=== PATIENT | male | born 1970 | race American Indian/Alaskan Native ===

== ENCOUNTER 2017-03-15 21:47 | Emergency (ER) | payer MEDICAID, OTHER ==
[2017-03-15 22:21] VITALS: BP 123/86
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
--- NOTE | 2017-03-16 09:29 | CR ---
Heart size within normal limits. Left lung is clear. Old right rib fracture. No focal consolidation.
== END 2017-03-15 23:45 | disposition home or self-care (01) ==
LOC: JP.ED 21:47
DX: S20.212A Contusion of left front wall of thorax, initial encounter (principal); E10.9 Type 1 diabetes mellitus without complications; F17.210 Nicotine dependence, cigarettes, uncomplicated; Z79.4 Long term (current) use of insulin; W20.8XXA Other cause of strike by thrown, projected or falling object, initial encounter
CPT/HCPCS: 71020; 71020-26; 99283; 99284

== ENCOUNTER 2017-03-17 13:40 | Emergency (ER) | payer MEDICAID, OTHER ==
[2017-03-17 13:57] VITALS: BP 139/80
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
[2017-03-17] MEDS ORDERED: Acetaminophen/HYDROcodone 325-5 MG Tab PO ONE (14:33)
[2017-03-17] MEDS ORDERED: Ibuprofen 600 MG Tab PO ONE (14:34)
== END 2017-03-17 17:07 | disposition home or self-care (01) ==
LOC: JP.ED 13:40
DX: R73.9 Hyperglycemia, unspecified (principal); S20.212A Contusion of left front wall of thorax, initial encounter; E10.9 Type 1 diabetes mellitus without complications; F17.210 Nicotine dependence, cigarettes, uncomplicated; Z79.4 Long term (current) use of insulin; V49.9XXA Car occupant (driver) (passenger) injured in unspecified traffic accident, initial encounter
CPT/HCPCS: 82962; 99284; A9270; 99283

== ENCOUNTER 2017-04-07 23:04 | Emergency (ER) | payer MEDICAID ==
[2017-04-07 23:24] VITALS: BP 117/78
[2017-04-07] MEDS ORDERED: LANTUS SQ STA (23:34)
[2017-04-07] MEDS ORDERED: Insulin Aspart 100 Units/ML 3 ML Pen SUBCUT ONE (23:35)
--- NOTE | 2017-04-07 23:40 | EDM.PDOC ---
ED HPI GENERAL MEDICAL PROBLEM - General Chief Complaint: Diabetic Complaint Stated Complaint: HIGH BLOOD SUGAR Time Seen by Provider: 04/07/17 23:33 Source of Information: Reports: Patient History Limitations: Reports: No limitations - History of Present Illness INITIAL COMMENTS - FREE TEXT/NARRATIVE: History of present illness: [This 38-year-old male presents here requesting an injection of NovoLog and Lantus. [place] going [place] be working in the area and ran out of his insulin. He seems quite intelligent with respect to the use of insulin and what he needs to take. He checked his blood sugar before coming over and it was 450 and is requesting 25 units of NovoLog N. 28 units of Lantus. He is feeling fine and he plans to try to get in the clinic tomorrow to establish a primary care provider who can provide him his needs for his diabetes.] Review of systems: As per history of present illness and below otherwise all systems reviewed and negative. Past medical history: As per history of present illness and as reviewed below otherwise noncontributory. Surgical history: As per history of present illness and as reviewed below otherwise noncontributory. Social history: No reported history of drug or alcohol abuse. Family history: As per history of present illness and as reviewed below otherwise noncontributory. Physical exam: HEENT: Atraumatic, normocephalic, pupils reactive, negative for conjunctival pallor or scleral icterus, mucous membranes moist, throat clear, neck supple, nontender, trachea midline. Lungs: Clear to auscultation, breath sounds equal bilaterally, chest nontender. Heart: S1S2, regular, negative for clicks, rubs, or JVD. Abdomen: Soft, nondistended, nontender. Negative for masses or hepatosplenomegaly. Negative for costovertebral tenderness. Pelvis: Stable nontender. Genitourinary: Deferred. Rectal: Deferred. Extremities: Atraumatic, negative for cords or calf pain. Neurovascular unremarkable. Neuro: Awake, alert, oriented. Cranial nerves II through XII unremarkable. Cerebellum unremarkable. Motor and sensory unremarkable throughout. Exam nonfocal. Diagnostics: [] Therapeutics: [] Impression: [Diabetes mellitus insulin-dependent] Plan: [We will provide him with these injections tonight and then he will followup in the clinic tomorrow] Definitive disposition and diagnosis as appropriate pending reevaluation and review of above. - Related Data Allergies Allergy/AdvReac Type Severity Reaction Status Date / Time No Known Allergies Allergy Verified 04/07/17 23:24 Home Meds: Home Meds Insulin Aspart [Novolog Flexpen] 25 - 35 units SUBCNJ QID 03/15/17 [History] Insulin Glarg,Human.Rec.Analog [Lantus Solostar] 32 units SUBCNJ DAILY 03/15/17 [History] Past Medical History Musculoskeletal History: Reports: Fracture Endocrine/Metabolic History: Reports: Diabetes, type I Social & Family History - Family History Family Medical History: Unobtainable - Tobacco Use Smoking Status *Q: Current Status Unknown Years of Tobacco use: 1 Packs/Tins Daily: 0.5 - Caffeine Use Caffeine Use: Reports: Coffee, Soda - Recreational Drug Use Recreational Drug Use: No ED ROS GENERAL - Review of Systems Review Of Systems: ROS reveals no pertinent complaints other than HPI. ED EXAM GENERAL NO PERIP PULSE - Physical Exam Exam: See Below Course - Vital Signs Last Recorded V/S: Last Vital Signs Temp 36.1 C 04/07/17 23:21 Pulse 90 04/07/17 23:21 Resp 19 04/07/17 23:21 BP 117/78 04/07/17 23:21 Pulse Ox 98 04/07/17 23:21 - Orders/Labs/Meds Meds: Medications Discontinued Medications Generic Name Dose Route Start Last Admin Trade Name Freq PRN Reason Stop Dose Admin Insulin Aspart 25 unit 04/07/17 23:35 Novolog SUBCUT 04/07/17 23:36 ONETIME ONE Non-Formulary Medication 28 units 04/07/17 23:34 Lantus SQ 04/07/17 23:35 NOW STA Departure - Departure Time of Disposition: 23:40 Disposition: Home, Self-Care 01 Condition: good Clinical Impression: Diabetes mellitus, insulin dependent (IDDM), controlled - Discharge Information Forms: ED Department Discharge
[2017-04-07] MEDS ORDERED: Insulin Detemir 100 Units/ML 3 ML Pen SUBCUT ONE (23:45)
== END 2017-04-07 23:55 | disposition home or self-care (01) ==
LOC: JP.ED 23:04
DX: E11.9 Type 2 diabetes mellitus without complications (principal); Z79.4 Long term (current) use of insulin
CPT/HCPCS: 99283; A9270

== ENCOUNTER 2017-09-19 15:31 | Emergency (ER) | payer MEDICAID ==
[2017-09-19] MEDS ORDERED: Tetracaine HCl/PF 0.5% 4 ML Bottle EYERT ONE (15:47)
[2017-09-19 15:53] VITALS: BP 145/88
--- NOTE | 2017-09-19 16:04 | EDM.PDOC ---
ED HPI GENERAL MEDICAL PROBLEM - General Chief Complaint: Eye Problems Stated Complaint: RIGHT EYE, PIECE OF METAL Time Seen by Provider: 09/19/17 15:45 Source of Information: Reports: Patient History Limitations: Reports: No Limitations - History of Present Illness INITIAL COMMENTS - FREE TEXT/NARRATIVE: Chase is a 46 year old diabetic male who presents to the ED today with concerns of a FB in his right eye. Patient working on his car when he felt something enter his eye, he then rubbed his eye causing redness and pain. Patient arrives here c/o right eye pain and redness, denies any visual concerns and DT is up to date. Patient denies any other complaints. Onset: Today, Sudden - Related Data Allergies Allergy/AdvReac Type Severity Reaction Status Date / Time amoxicillin Allergy Hives Verified 09/19/17 15:46 Home Meds: Home Meds Insulin Aspart [Novolog Flexpen] 25 - 35 units SUBCNJ QID 03/15/17 [History] Insulin Glarg,Human.Rec.Analog [Lantus Solostar] 32 units SUBCNJ DAILY 03/15/17 [History] Lisinopril 1 tab PO DAILY 09/19/17 [History] Past Medical History - Past Health History Medical/Surgical History: Denies Medical/Surgical History Musculoskeletal History: Reports: Fracture Endocrine/Metabolic History: Reports: Diabetes, Type I Social & Family History - Family History Family Medical History: Unobtainable - Tobacco Use Smoking Status *Q: Never Smoker Years of Tobacco use: 1 Packs/Tins Daily: 0.5 - Caffeine Use Caffeine Use: Reports: Coffee, Soda - Recreational Drug Use Recreational Drug Use: No ED ROS GENERAL - Review of Systems Review Of Systems: ROS reveals no pertinent complaints other than HPI. ED EXAM GENERAL W FULL EYE - Physical Exam Exam: See Below Exam Limited By: No Limitations General Appearance: Alert, WD/WN, No Apparent Distress Eye Exam: Right Eye: Conjunctival Injection, Corneal Abrasion, Bilateral Eye: EOMI, Normal Fundi, PERRL Eyelids: Right: Lid Everted for Exam (No FB identified), Bilateral: Normal Appearance Conjunctiva & Sclera: Right: Injected Cornea Exam: Right: Corneal Abrasion Extraocular Movements: Bilateral: Intact Pupils: Normal Accommodation Pupillary Size: Bilateral: 3 mm, 4 mm Pupillary Reaction: Bilateral: Brisk Anterior Chamber: Bilateral: Normal Appearance Posterior Chamber: Bilateral: Normal Funduscopic Head: Atraumatic Respiratory/Chest: No Respiratory Distress Cardiovascular: Normal Peripheral Pulses, Regular Rate, Rhythm Extremities: Normal Inspection Neurological: Alert, Oriented, CN II-XII Intact Psychiatric: Normal Affect, Normal Mood Skin Exam: Warm, Dry, Intact Lymphatic: No Adenopathy Course - Vital Signs Last Recorded V/S: Last Vital Signs Temp 36.3 C 09/19/17 15:51 Pulse 88 09/19/17 15:51 Resp 16 09/19/17 15:51 BP 145/88 H 09/19/17 15:51 Pulse Ox 97 09/19/17 15:51 Chase is a 46-year-old type I diabetic male who presents to the emergency department today with complaints of eye redness and pain. Patient is concerned he had a foreign body in his eye after working on his car. Thorough Eye exam was performed after anesthesia was achieved using tetracaine, there is no evidence of a foreign body, lives everted and swept, fluorescein stain was applied and eye was examined with Wood's light which reveals a 2 mm corneal abrasion to the 8:00 region of patient's right eye I there is conjunctival injection to the right eye as well especially near the inner canthus. There is no evidence of chemosis, hordeolum, stye, hyphema. I'm going to start patient on Ocuflox ophthalmic drops to prevent infection. He can take ibuprofen and Tylenol as needed for pain, I did offer patient something stronger for pain which he would like something for bedtime. Patient was given a small supply of [place], narcotic safety was discussed. I would like patient evaluated by his eye doctor early in this next week to make sure everything is healing properly, he was informed that if he develops any worsening symptoms, visual changes or concerns he needs to return the emergency Department. Patient was agreeable to plan of care and was discharged in stable condition. - Orders/Labs/Meds Meds: Medications Discontinued Medications Generic Name Dose Route Start Last Admin Trade Name Freq PRN Reason Stop Dose Admin Tetracaine HCl 1 ml 09/19/17 15:47 09/19/17 15:55 Tetracaine 0.5% Steri-Unit Tammy EYERT 09/19/17 15:48 3 drop ASDIRECTED ONE Administration Departure - Departure Time of Disposition: 16:15 Disposition: Home, Self-Care 01 Condition: Good Clinical Impression: Corneal abrasion Qualifiers: Encounter type: initial encounter Laterality: right Qualified Code(s): S05.01XA - Injury of conjunctiva and corneal abrasion without foreign body, right eye, initial encounter - Discharge Information Instructions: Corneal Abrasion Referrals: PCP,None [Primary Care Provider] - Forms: ED Department Discharge Additional Instructions: Take Ibuprofen for pain, 600 mg every 6 hours. Take [place] for severe pain, this is a narcotic, do not drive if you take it. Use antibiotic eye drops as prescribed. Follow up with eye doctor early next week to ensure healing. Return to the ED with any worsening symptoms or concerns.
== END 2017-09-19 16:13 | disposition home or self-care (01) ==
LOC: JP.ED 15:31
DX: S05.01XA Injury of conjunctiva and corneal abrasion without foreign body, right eye, initial encounter (principal); E10.9 Type 1 diabetes mellitus without complications; X58.XXXA Exposure to other specified factors, initial encounter; Z88.1 Allergy status to other antibiotic agents
CPT/HCPCS: 99283; A9270

== ENCOUNTER 2018-12-26 22:36 | Emergency (ER) | payer SELFPAY ==
[2018-12-26] MEDS ORDERED: Sodium Chloride 0.9% 10 ML Syringe FLUSH PRN ×2 (22:45)
[2018-12-26] MEDS ORDERED: methylPREDNISolone Sodium Succinate 125 MG/2 ML SDV IVPUSH ONE (22:47)
[2018-12-26] MEDS ORDERED: Albuterol/Ipratropium 3.0-0.5 MG/3 ML Neb Soln NEB ONE (22:47)
[2018-12-26 22:48] VITALS: BP 128/85
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
--- NOTE | 2018-12-27 09:28 | CR ---
CHEST: 2 view CLINICAL HISTORY:SOB COMPARISON:2017 FINDINGS: The heart size, pulmonary vascular and hilar structures are normal. No infiltrate effusion or pneumothorax is seen. There is mild compression deformities of thoracic vertebrae similar to prior study. There is an old right rib fracture IMPRESSION: No acute cardiopulmonary process.
== END 2018-12-26 23:50 | disposition home or self-care (01) ==
LOC: JP.ED 22:36
DX: J40 Bronchitis, not specified as acute or chronic (principal); I10 Essential (primary) hypertension; E10.9 Type 1 diabetes mellitus without complications; Z79.4 Long term (current) use of insulin; Z79.82 Long term (current) use of aspirin; Z88.1 Allergy status to other antibiotic agents
CPT/HCPCS: 36415; 71046; 80053; 83605; 84484; 85025; 94640; 96374; 99284; J2930; J7620-GY

== ENCOUNTER 2019-01-10 20:35 | Emergency (ER) | payer SELFPAY ==
[2019-01-10] MEDS ORDERED: Insulin Glargine,Human Rec. Analog 100 Units/ML 3 ML Pen SUBCUT SCH (21:00)
[2019-01-10 21:03] VITALS: BP 142/80
[2019-01-10] MEDS ORDERED: Insulin Regular, Human 100 Units/ML 3 ML Vial SUBCUT ONE ×2 (22:10→22:12)
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
== END 2019-01-10 22:49 | disposition home or self-care (01) ==
LOC: JP.ED 20:35
DX: E10.65 Type 1 diabetes mellitus with hyperglycemia (principal); I10 Essential (primary) hypertension; J45.909 Unspecified asthma, uncomplicated; Z88.1 Allergy status to other antibiotic agents; Z79.899 Other long term (current) drug therapy; Z79.82 Long term (current) use of aspirin; Z91.14 Patient's other noncompliance with medication regimen
CPT/HCPCS: 36415; 80053; 81001; 85025; 99284; J1815

== ENCOUNTER 2019-02-22 21:22 | Emergency (ER) | payer MEDICAID, OTHER ==
[2019-02-22 21:36] VITALS: BP 131/92
[2019-02-22] MEDS ORDERED: Insulin Lispro 100 Unit/ML 3 ML KwikPen SUBCUT ONE (22:02)
[2019-02-22] MEDS ORDERED: Insulin Glargine,Human Rec. Analog 100 Units/ML 3 ML Pen SUBCUT STA (22:09)
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
[2019-02-23] MEDS ORDERED: Insulin Glargine,Human Rec. Analog 100 Units/ML 3 ML Pen SUBCUT SCH (09:00)
== END 2019-02-22 23:27 | disposition home or self-care (01) ==
LOC: JP.ED 21:22
DX: E10.65 Type 1 diabetes mellitus with hyperglycemia (principal); I10 Essential (primary) hypertension; Z79.82 Long term (current) use of aspirin; Z79.899 Other long term (current) drug therapy; Z88.1 Allergy status to other antibiotic agents
CPT/HCPCS: 82962; 99283; J1815

== ENCOUNTER 2019-05-01 12:16 | Emergency (ER) | payer MEDICAID ==
[2019-05-01 12:37] VITALS: BP 143/82
[2019-05-01] MEDS ORDERED: Proparacaine 0.5% Ophth Soln 15 ML Bottle EYEBOTH STA (12:52)
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
== END 2019-05-01 13:22 | disposition home or self-care (01) ==
LOC: JP.ED 12:16
DX: H16.001 Unspecified corneal ulcer, right eye (principal); I10 Essential (primary) hypertension; E10.9 Type 1 diabetes mellitus without complications; Z87.891 Personal history of nicotine dependence; Z79.82 Long term (current) use of aspirin; Z79.899 Other long term (current) drug therapy; Z88.1 Allergy status to other antibiotic agents
CPT/HCPCS: 99283; A9270

== ENCOUNTER 2019-05-04 17:56 | Emergency (ER) | payer MEDICAID ==
[2019-05-04] MEDS ORDERED: Bacitracin Oint 1 GM U/D Packet TOP ONE (18:09)
[2019-05-04 18:11] VITALS: BP 133/85
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
== END 2019-05-04 18:32 | disposition home or self-care (01) ==
LOC: JP.ED 17:56
DX: S01.81XA Laceration without foreign body of other part of head, initial encounter (principal); S01.111A Laceration without foreign body of right eyelid and periocular area, initial encounter; J45.909 Unspecified asthma, uncomplicated; E10.9 Type 1 diabetes mellitus without complications; I10 Essential (primary) hypertension; Z79.899 Other long term (current) drug therapy; Z79.82 Long term (current) use of aspirin; Z88.1 Allergy status to other antibiotic agents; W20.8XXA Other cause of strike by thrown, projected or falling object, initial encounter
CPT/HCPCS: 12013; 99282

== ENCOUNTER 2019-09-03 02:04 | Emergency (ER) | payer MEDICAID ==
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
[2019-09-03] MEDS ORDERED: Nitroglycerin 0.4 MG Tab.SL SL PRN (02:33)
[2019-09-03] MEDS ORDERED: Aspirin 81 MG Tab.Chew PO ONE (02:33)
[2019-09-03 03:07] VITALS: BP 114/67; PULSE 81
== END 2019-09-03 03:34 | disposition home or self-care (01) ==
LOC: JP.ED 02:04
DX: R07.89 Other chest pain (principal); I10 Essential (primary) hypertension; E10.9 Type 1 diabetes mellitus without complications; J45.909 Unspecified asthma, uncomplicated; Z79.4 Long term (current) use of insulin; Z87.891 Personal history of nicotine dependence; Z88.0 Allergy status to penicillin; Z79.899 Other long term (current) drug therapy
CPT/HCPCS: 36415; 84484; 93005; 99285; A9270

== ENCOUNTER 2019-09-11 16:47 | Emergency (ER) | payer MEDICAID ==
[2019-09-11 17:53] VITALS: BP 171/97; PULSE 91
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
== END 2019-09-11 18:13 | disposition home or self-care (01) ==
LOC: JP.ED 16:47
DX: K04.7 Periapical abscess without sinus (principal); I10 Essential (primary) hypertension; J45.909 Unspecified asthma, uncomplicated; E10.9 Type 1 diabetes mellitus without complications; Z79.4 Long term (current) use of insulin; Z88.1 Allergy status to other antibiotic agents; Z79.82 Long term (current) use of aspirin; Z79.899 Other long term (current) drug therapy
CPT/HCPCS: 99282

== ENCOUNTER 2020-09-02 18:17 | Emergency (ER) | payer MEDICAID ==
[2020-09-02 18:35] VITALS: BP 141/78; PULSE 102
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
== END 2020-09-02 20:10 | disposition home or self-care (01) ==
LOC: JP.ED 18:17
DX: J32.9 Chronic sinusitis, unspecified (principal); J40 Bronchitis, not specified as acute or chronic; I10 Essential (primary) hypertension; E10.9 Type 1 diabetes mellitus without complications; F17.210 Nicotine dependence, cigarettes, uncomplicated; Z88.1 Allergy status to other antibiotic agents; Z79.82 Long term (current) use of aspirin; Z79.899 Other long term (current) drug therapy
CPT/HCPCS: 99283

== ENCOUNTER 2022-11-14 14:52 | Emergency (ER) | payer MEDICAID | END 2022-11-14 15:37 | disposition left against medical advice (07) | LOC: JP.ED 14:52 | DX: Z53.21 Procedure and treatment not carried out due to patient leaving prior to being seen by health care provider (principal) ==

== ENCOUNTER 2022-11-14 17:12 | Emergency (ER) | payer MEDICAID ==
[2022-11-14] MEDS ORDERED: Acetaminophen/HYDROcodone 325-5 MG Tab PO ONE (18:18)
[2022-11-14 18:30] VITALS: BP 127/79; PULSE 99
== END 2022-11-14 19:18 | disposition home or self-care (01) ==
LOC: JP.ED 17:12
DX: S05.11XA Contusion of eyeball and orbital tissues, right eye, initial encounter (principal); I10 Essential (primary) hypertension; J45.909 Unspecified asthma, uncomplicated; E10.9 Type 1 diabetes mellitus without complications; Z72.0 Tobacco use; Z88.0 Allergy status to penicillin; Z79.82 Long term (current) use of aspirin; Z79.899 Other long term (current) drug therapy; W22.8XXA Striking against or struck by other objects, initial encounter
CPT/HCPCS: 36415; 70486; 85025; 99283; A9270

== ENCOUNTER 2023-03-29 22:40 | Emergency (ER) | payer MEDICAID ==
[2023-03-29 23:10] VITALS: BP 124/61; PULSE 91
[2023-03-29] MEDS ORDERED: Insulin Glargine,Human Rec. Analog 100 Units/ML 3 ML Pen SUBCUT STA (23:31)
[2023-03-29] MEDS ORDERED: Glucagon,Human Recombinant 1 MG Vial IM PRN (23:31)
[2023-03-29] MEDS ORDERED: 50% Dextrose in Water 50 ML Syringe IVPUSH PRN (23:31)
[2023-03-29] MEDS ORDERED: Insulin Regular, Human 100 Units/ML 3 ML Vial SUBCUT ONE (23:32)
== END 2023-03-30 00:14 | disposition home or self-care (01) ==
LOC: JP.ED 22:40
DX: E10.65 Type 1 diabetes mellitus with hyperglycemia (principal); I10 Essential (primary) hypertension; J45.909 Unspecified asthma, uncomplicated; K21.9 Gastro-esophageal reflux disease without esophagitis; Z79.82 Long term (current) use of aspirin; Z79.899 Other long term (current) drug therapy; Z88.0 Allergy status to penicillin
CPT/HCPCS: 99283; 99284; J1815-GY

== ENCOUNTER 2023-08-03 13:32 | Emergency (ER) | payer MEDICAID | END 2023-08-03 14:30 | disposition left against medical advice (07) | LOC: JP.ED 13:32 | DX: Z53.21 Procedure and treatment not carried out due to patient leaving prior to being seen by health care provider (principal) ==

== ENCOUNTER 2025-06-30 20:16 | Emergency (ER) | payer MEDICAID, OTHER | END 2025-06-30 21:00 | disposition left against medical advice (07) | LOC: JP.ED 20:16 | DX: Z53.21 Procedure and treatment not carried out due to patient leaving prior to being seen by health care provider (principal) ==

== ENCOUNTER 2025-07-03 22:55 | Emergency (ER) | payer OTHER ==
[2025-07-03 23:06] VITALS: BP 158/86; PULSE 94
== END 2025-07-03 23:31 | disposition home or self-care (01) ==
LOC: JP.ED 22:55
DX: L03.113 Cellulitis of right upper limb (principal); I10 Essential (primary) hypertension; E10.9 Type 1 diabetes mellitus without complications; K21.9 Gastro-esophageal reflux disease without esophagitis; Z79.899 Other long term (current) drug therapy; Z79.82 Long term (current) use of aspirin; Z79.4 Long term (current) use of insulin; Z87.891 Personal history of nicotine dependence
CPT/HCPCS: 99283